=== PATIENT | female | born 1960 | race Caucasian/White ===

== ENCOUNTER 2017-11-26 13:11 | Day surgery (SDC) | payer OTHER ==
[~2017-11-26] VITALS: Ht 160 cm; Wt 53.7 kg
[~2017-11-26 13:11] MED LIST: CEPH500 PO; ESCI20; NITR100CA
[2017-11-26] MEDS ORDERED: MORP30ER PO (13:28)
[2017-11-26] MEDS ORDERED: PROM25S (13:28)
[2017-11-26] MEDS ORDERED: METCAR500 (13:29)
[2017-11-26] MEDS ORDERED: DULO60 PO (13:29)
[2017-11-26] MEDS ORDERED: Oxycodone HCl20 M1 (13:29)
[2017-11-26] MEDS ORDERED: Arava10 MG (13:29)
[2017-11-26] MEDS ORDERED: FISH OIL + D31 EACH (13:30)
[2017-11-26] MEDS ORDERED: L-Lysine500 M1 (13:30)
[2017-11-26] MEDS ORDERED: Narcan 0.40.4 MG/ML (13:30)
[2017-11-26] MEDS ORDERED: [UNRECOGNIZED DRUG - OTHER] (13:30)
[2017-11-26] MEDS ORDERED: FOLI1 (13:30)
[2017-11-26] MEDS ORDERED: CRANBERRY250 MG (13:30)
[2017-11-26] MEDS ORDERED: Hair, Skin & N1 EACH (13:31)
[2017-11-26] MEDS ORDERED: Voltaren100 GM (13:31)
[2017-11-26] MEDS ORDERED: MILK THISTLE140 MG (13:31)
== END 2017-11-26 17:35 | disposition home or self-care (01) ==
LOC: ORSCSDS 13:11
PROVIDERS: Orthopaedic Surgery
PROC: 0RQS0ZZ Repair Right Carpometacarpal Joint, Open Approach (ICD-10-PCS; principal; 2017-11-26 14:30)
DX: M18.11 Unilateral primary osteoarthritis of first carpometacarpal joint, right hand (principal); Z79.899 Other long term (current) drug therapy; Z87.891 Personal history of nicotine dependence
CPT/HCPCS: J0690; J2250; J2270; J3010; J7120

== ENCOUNTER 2018-06-07 04:17 | Inpatient (IN) | payer OTHER ==
[~2018-06-07] VITALS: Ht 160 cm; Wt 53.5 kg
[~2018-06-07 04:17] MED LIST changes: +Arava10 MG; +CRANBERRY250 MG; +DULO60 PO; +FISH OIL + D31 EACH; +FOLI1; +Hair, Skin & N1 EACH; +L-Lysine500 M1; +METCAR500; +MILK THISTLE140 MG; +MORP30ER PO; +Narcan 0.40.4 MG/ML; +Oxycodone HCl20 M1; +PROM25S; +Voltaren100 GM; +[UNRECOGNIZED DRUG - OTHER]
[2018-06-07 05:06] LABS: BASOPHILS ABSOLUTE AUTO 0.06 K/mm3 (0.00-0.23); BASOPHILS PERCENT AUTO 1 % (0-2); EOSINOPHILS ABSOLUTE AUTO 0.09 K/mm3 (0.00-0.68); EOSINOPHILS PERCENT AUTO 1 % (0-6); Hematocrit 44.8 % (33.0-51.0); Hemoglobin 14.9 g/dL (11.5-16.0); IMMATURE GRAN ABSOLUTE AUTO 0.02 K/mm3 (0.00-0.10); IMMATURE GRAN PERCENT AUTO 0 % (0-1); LYMPHOCYTES ABSOLUTE AUTO 0.97 K/mm3 (0.84-5.20); LYMPHOCYTES PERCENT AUTO 12 % (21-46); MONOCYTES ABSOLUTE AUTO 0.54 K/mm3 (0.16-1.47); MONOCYTES PERCENT AUTO 7 % (4-13); Mean Corpuscular HGB 30.5 pg (26.0-34.0); Mean Corpuscular HGB Conc 33.3 g/dL (31.5-36.5); Mean Corpuscular Volume 92 fL (80-100); NEUTROPHILS ABSOLUTE AUTO 6.44 K/mm3 (1.96-9.15); NEUTROPHILS PERCENT AUTO 79 % (41-73); Platelet Count 351 K/mm3 (150-400); RDW Coefficient Variation 12.7 % (11.7-14.2); Red Blood Cell Count 4.89 M/mm3 (3.80-5.20); White Blood Cell Count 8.12 K/mm3 (4.00-11.30)
[2018-06-07 05:20] LABS: Alanine Aminotransfer (ALT/SGP 34 U/L (12-78); Albumin, Blood 3.8 g/dL (3.4-5.0); Albumin/Globulin Ratio 1.1 (0.8-1.8); Alk Phos 102 U/L (50-136); Anion Gap 8 mmol/L (6-16); Aspartate Aminotrans (AST/SGOT 46 U/L (12-37); Bilirubin, Total 0.5 mg/dL (0.1-1.0); Blood Urea Nitrogen 5 mg/dL (8-24); CO2, Blood 30 mmol/L (21-32); Calcium, Blood 9.6 mg/dL (8.5-10.1); Chloride, Blood 103 mmol/L (98-108); Creatinine, Blood 0.72 mg/dL (0.40-1.00); Globulin, Blood 3.6 g/dL (2.2-4.0); Glomerular Filtration Rate >60 (60-); Glucose, Blood 112 mg/dL (70-99); Potassium, Blood 3.8 mmol/L (3.5-5.5); Sodium, Blood 141 mmol/L (136-145); Total Protein, Blood 7.4 g/dL (6.4-8.2)
[2018-06-07] MEDS ORDERED: HYDR1TAB94 PO (05:54)
[2018-06-07] MEDS ORDERED: METCAR500 (10:15)
[2018-06-07] MEDS ORDERED: LEFL20 PO (10:16)
[2018-06-07] MEDS ORDERED: PROM25 PO (10:17)
[2018-06-08 03:54] LABS: Hematocrit 38.2 % (33.0-51.0); Hemoglobin 12.6 g/dL (11.5-16.0); Mean Corpuscular HGB 30.3 pg (26.0-34.0); Mean Corpuscular Volume 92 fL (80-100); Mean Platelet Volume 8.7 fL (9.1-12.4); Platelet Count 318 K/mm3 (150-400); RDW Standard Deviation 43.7 fL (35.1-46.3); Red Blood Cell Count 4.16 M/mm3 (3.80-5.20); White Blood Cell Count 9.54 K/mm3 (4.00-11.30)
[2018-06-08 04:23] LABS: Magnesium, Blood 1.7 mg/dL (1.6-2.4)
[2018-06-08 04:26] LABS: Anion Gap 7 mmol/L (6-16); Blood Urea Nitrogen 4 mg/dL (8-24); Bun/Creatinine Ratio 5.5 (12.0-20.0); CO2, Blood 28 mmol/L (21-32); Chloride, Blood 110 mmol/L (98-108); Creatinine, Blood 0.73 mg/dL (0.40-1.00); Glomerular Filtration Rate >60 (60-); Glucose, Blood 94 mg/dL (70-99); Potassium, Blood 3.5 mmol/L (3.5-5.5); Sodium, Blood 145 mmol/L (136-145)
[2018-06-09 05:44] LABS: Anion Gap 8 mmol/L (6-16); Blood Urea Nitrogen 12 mg/dL (8-24); Bun/Creatinine Ratio 22.2 (12.0-20.0); CO2, Blood 29 mmol/L (21-32); Calcium, Blood 8.7 mg/dL (8.5-10.1); Chloride, Blood 105 mmol/L (98-108); Creatinine, Blood 0.54 mg/dL (0.40-1.00); Glomerular Filtration Rate >60 (60-); Glucose, Blood 127 mg/dL (70-99); Potassium, Blood 3.5 mmol/L (3.5-5.5); Sodium, Blood 142 mmol/L (136-145)
[2018-06-10 04:13] LABS: Hematocrit 42.4 % (33.0-51.0); Hemoglobin 14.1 g/dL (11.5-16.0); Mean Corpuscular HGB 30.4 pg (26.0-34.0); Mean Corpuscular HGB Conc 33.3 g/dL (31.5-36.5); Mean Corpuscular Volume 91 fL (80-100); Mean Platelet Volume 8.9 fL (9.1-12.4); Platelet Count 347 K/mm3 (150-400); RDW Coefficient Variation 12.8 % (11.7-14.2); RDW Standard Deviation 42.4 fL (35.1-46.3); Red Blood Cell Count 4.64 M/mm3 (3.80-5.20); White Blood Cell Count 8.59 K/mm3 (4.00-11.30)
[2018-06-10 04:28] LABS: Anion Gap 8 mmol/L (6-16); Blood Urea Nitrogen 15 mg/dL (8-24); CO2, Blood 29 mmol/L (21-32); Calcium, Blood 8.8 mg/dL (8.5-10.1); Chloride, Blood 105 mmol/L (98-108); Glomerular Filtration Rate >60 (60-); Glucose, Blood 94 mg/dL (70-99); Potassium, Blood 3.6 mmol/L (3.5-5.5); Sodium, Blood 142 mmol/L (136-145)
== END 2018-06-12 11:53 | disposition home or self-care (01) | DRG 389 ==
LOC: ER 04:17 → SURS 07:27
PROVIDERS: Emergency Medicine; Internal Medicine
PROC: 3E0336Z Introduction of Nutritional Substance into Peripheral Vein, Percutaneous Approach (ICD-10-PCS; principal; 2018-06-11)
DX: K56.600 Partial intestinal obstruction, unspecified as to cause (principal); F11.20 Opioid dependence, uncomplicated; G89.29 Other chronic pain; M79.7 Fibromyalgia; F32.9 Major depressive disorder, single episode, unspecified; F41.9 Anxiety disorder, unspecified; K58.9 Irritable bowel syndrome, unspecified; M06.9 Rheumatoid arthritis, unspecified; M85.80 Other specified disorders of bone density and structure, unspecified site; Z66 Do not resuscitate; Z90.5 Acquired absence of kidney
CPT/HCPCS: 36415; 74018; 74177; 80048; 80053; 83690; 83735; 85025; 85027; 96361; 96374; 96375; 96376; 99285-25; C9113; J1170; J2270; J2405; J2550; J3010; J7030; J7120; Q9967

== ENCOUNTER 2019-02-17 08:11 | Day surgery (SDC) | payer OTHER ==
[~2019-02-17] VITALS: Ht 160 cm; Wt 54.9 kg
[~2019-02-17 08:11] MED LIST changes: +HYDR1TAB94 PO; +LEFL20 PO; +PROM25 PO
[2019-02-17] MEDS ORDERED: NARCAN4 MG (08:25)
[2019-02-17] MEDS ORDERED: ADAL40PEN (08:25)
[2019-02-17] MEDS ORDERED: TIZANIDINE HCL2 MG (08:26)
[2019-02-17] MEDS ORDERED: FISH OIL + D31 EACH (08:26)
[2019-02-17] MEDS ORDERED: FOLI400 (08:26)
[2019-02-17] MEDS ORDERED: L-LYSINE500 MG (08:27)
--- NOTE | 2019-02-17 12:49 | NUR ---
02/17/19 1249 Nikkie Yee RECIEVED REPORT FROM TRACEY TAVERA. PT RESTING IN RECLINER WITH EYES CLOSED. OPERATIVE LIMB ELEVATED WITH ICE PACK UNDER LEFT ELBOW. PT RATES PAIN 8/10 IN LEFT HAND. PT MEDICATED WITH PO MEDS. PT AROUSABLE TO VOICE. FLACC SCALE 3. VSS. PT TOLERATING PO FLUIDS. RN CONT TO MONITER DRESSING. NO DRAINAGE AT THIS TIME.
== END 2019-02-17 13:45 | disposition home or self-care (01) ==
LOC: ORSCSDS 08:11
PROVIDERS: Orthopaedic Surgery
PROC: 0LX80ZZ Transfer Left Hand Tendon, Open Approach (ICD-10-PCS; principal; 2019-02-17 08:45)
PROC: 0LU607Z Supplement Left Lower Arm and Wrist Tendon with Autologous Tissue Substitute, Open Approach (ICD-10-PCS; principal; 2019-02-17 08:45)
DX: M18.12 Unilateral primary osteoarthritis of first carpometacarpal joint, left hand (principal); Z87.891 Personal history of nicotine dependence; Z79.899 Other long term (current) drug therapy
CPT/HCPCS: A9270-GY; J0690; J1100; J1885; J2250; J2405; J3010

== ENCOUNTER 2019-04-21 08:57 | Day surgery (SDC) | payer OTHER, SELFPAY ==
[~2019-04-21] VITALS: Ht 160 cm; Wt 55.5 kg
[~2019-04-21 08:57] MED LIST changes: +ADAL40PEN; +CHOL10002 PO; +Cranberry400 MG PO; +Estrace Vagin42.5 GM VAG; +FOLI400; +FOLI400 PO; +Fish Oil 10001000 MG PO; +Hair, Skin & N1 EACH PO; +L-LYSINE500 MG; +L-LYSINE500 MG PO; +Milk Thistle500 MG PO; +NARCAN4 MG; +Oxycodone HCl20 M1 PO; +TIZANIDINE HCL2 MG; +TIZANIDINE HCL2 MG PO; +VOLTAREN100 GM TOP
--- NOTE | 2019-04-21 10:53 | NUR ---
04/21/19 1053 Nan Patricio TOE RING THAT WAS STATED TO BE UNREMOVABLE WAS IN FACT A C-SHAPE AND OPEN ON THE BACK SIDE, REMOVED WITHOUT INCIDENT FOR THE PREP, LABELED AND PLACED IN A SMALL BAGGIE.
== END 2019-04-21 13:20 | disposition home or self-care (01) ==
LOC: ORSCSDS 08:57
PROVIDERS: Orthopaedic Surgery
PROC: 0S9D3ZZ Drainage of Left Knee Joint, Percutaneous Approach (ICD-10-PCS; principal; 2019-04-21 10:20)
PROC: 0SQD4ZZ Repair Left Knee Joint, Percutaneous Endoscopic Approach (ICD-10-PCS; principal; 2019-04-21 10:20)
PROC: 0SBD4ZZ Excision of Left Knee Joint, Percutaneous Endoscopic Approach (ICD-10-PCS; principal; 2019-04-21 10:20)
DX: M17.12 Unilateral primary osteoarthritis, left knee (principal); S83.242A Other tear of medial meniscus, current injury, left knee, initial encounter; S83.282A Other tear of lateral meniscus, current injury, left knee, initial encounter; M22.42 Chondromalacia patellae, left knee; M71.22 Synovial cyst of popliteal space [Baker], left knee; Z87.891 Personal history of nicotine dependence; M79.7 Fibromyalgia; J84.10 Pulmonary fibrosis, unspecified; Z79.899 Other long term (current) drug therapy
CPT/HCPCS: J0171; J0690; J1100; J2250; J2405; J2704; J3010

== ENCOUNTER → 2019-08-08 | Outpatient (CLI) | payer OTHER ==
[2019-08-08 13:50] LABS: U Amphetamine Screen Not Detected; U Barbituate Screen Not Detected; U Benzodiazapine Screen Not Detected; U Buprenorphine Screen Not Detected; U Cannabinoids Screen DETECTED; U Cocaine Screen Not Detected; U Methadone Screen Not Detected; U Methamphetamine Screen Not Detected; U Opiates Screen DETECTED; U Oxycodone Screen DETECTED; U Phencyclidine Screen Not Detected; U Propoxyphene Screen Not Detected
== END ==
LOC: LAB SHORT 12:06 → LAB 12:06
PROVIDERS: Internal Medicine
DX: Z51.81 Encounter for therapeutic drug level monitoring (principal); Z79.891 Long term (current) use of opiate analgesic
CPT/HCPCS: G0480

== ENCOUNTER 2019-12-09 06:04 | Day surgery (SDC) | payer OTHER ==
[~2019-12-09] VITALS: Ht 160 cm; Wt 57.8 kg
[~2019-12-09 06:04] MED LIST changes: +ADAL40PEN SC
--- NOTE | 2019-12-09 06:48 | NUR ---
History, Chart, Medications and Allergies reviewed before start of procedure. Patient confirms NPO status and agrees with scheduled surgery. Lungs clear T/O to Auscultation. Patient reports completing Chlorhexadine shower X2 prior to admission to hospital. Patient States Post-Procedure ride home has been arranged. Pre-Op teaching done. Pt verbalizes understanding. PIERCINGS IN NOSE AND EAR TAPED AND REFUSAL SIGNED AND ON CHART. PARTIAL (LOWER) IN PLACE WILL REMOVE AND PLACE IN PACU WELL GLASSES. NO HEARING DEVICES, CONTACTS PRESENT AT ADMIT.
--- NOTE | 2019-12-09 07:08 | NUR ---
COUNTERPERSON REPORT COMPLETED AT BEDSIDE.
--- NOTE | 2019-12-09 08:09 | NUR ---
12/09/19 0809 Allegra RoweOAM 8CM X 6.25XM, LOT [id number] EXP 05/16/22. NO RECONSTITUTION USED.
--- NOTE | 2019-12-09 11:28 | NUR ---
"DAY SURGERY RN | DISCHARGE VSS. A/O. DENIES NAUSEA. PAIN DECREASING. DR. PEREZ SPOKE WITH PATIENT. DISCHARGE INSTRUCTIONS GIVEN TO PATIENT. FRIEND AT BEDSIDE. TAKEN IN WHEELCHAIR TO FRONT ENTRANCE BY VOLUNTEER."
== END 2019-12-09 22:44 | disposition home or self-care (01) ==
LOC: ORSCMMR 06:04 → ORD 07:30 → ORSCMMR 07:30
PROVIDERS: Surgery
PROC: 0JB60ZZ Excision of Chest Subcutaneous Tissue and Fascia, Open Approach (ICD-10-PCS; principal; 2019-12-09 07:30)
DX: D17.1 Benign lipomatous neoplasm of skin and subcutaneous tissue of trunk (principal); Z79.899 Other long term (current) drug therapy; M79.7 Fibromyalgia; M35.00 Sjogren syndrome, unspecified
CPT/HCPCS: 88304; J0690; J1100; J2250; J2405; J2704; J3010; J7120

== ENCOUNTER 2019-12-20 09:56 | Emergency (ER) | payer OTHER ==
[~2019-12-20] VITALS: Ht 160 cm; Wt 55.8 kg
== END 2019-12-20 12:02 | disposition home or self-care (01) ==
LOC: ER 09:56
DX: L76.33 Postprocedural seroma of skin and subcutaneous tissue following a dermatologic procedure (principal); Z88.6 Allergy status to analgesic agent; Z88.1 Allergy status to other antibiotic agents; Z88.5 Allergy status to narcotic agent; Z88.2 Allergy status to sulfonamides; Z79.899 Other long term (current) drug therapy; Z87.891 Personal history of nicotine dependence; Z98.890 Other specified postprocedural states
CPT/HCPCS: 99283

== ENCOUNTER 2020-12-17 09:53 | Day surgery (SDC) | payer OTHER, SELFPAY ==
[~2020-12-17 09:53] MED LIST changes: +HAIR, SKIN AND1 EAC3 PO
== END 2020-12-17 22:44 | disposition home or self-care (01) ==
LOC: MOI US 09:53 → MOI MAM 10:15 → MOI US 22:44
DX: C50.512 Malignant neoplasm of lower-outer quadrant of left female breast (principal); Z17.0 Estrogen receptor positive status [ER+]
CPT/HCPCS: 19083; 77065; 88305; 88342; 88360; A4648; G0279

== ENCOUNTER → 2021-11-14 | Outpatient (CLI) | payer OTHER | END | disposition home or self-care (01) | LOC: LAB 14:00 → LAB SHORT 14:00 | DX: R30.0 Dysuria (principal) | CPT/HCPCS: 87077; 87086; 87186 ==

== ENCOUNTER → 2021-11-23 | Outpatient (CLI) | payer OTHER | END | disposition home or self-care (01) | LOC: LAB SHORT 18:47 | DX: R30.0 Dysuria (principal) | CPT/HCPCS: 87077; 87086; 87186 ==

== ENCOUNTER 2022-04-20 07:52 | Day surgery (SDC) | payer OTHER ==
[~2022-04-20] VITALS: Ht 160 cm; Wt 55.5 kg
== END 2022-04-20 10:41 | disposition home or self-care (01) ==
LOC: ORSCSDS 07:52
PROVIDERS: Student in an Organized Health Care Education/Training Program
PROC: 0DB78ZX Excision of Stomach, Pylorus, Via Natural or Artificial Opening Endoscopic, Diagnostic (ICD-10-PCS; principal; 2022-04-20 09:00)
PROC: 0DB48ZX Excision of Esophagogastric Junction, Via Natural or Artificial Opening Endoscopic, Diagnostic (ICD-10-PCS; principal; 2022-04-20 09:00)
PROC: 0DBL8ZX Excision of Transverse Colon, Via Natural or Artificial Opening Endoscopic, Diagnostic (ICD-10-PCS; principal; 2022-04-20 09:00)
PROC: 0D758ZZ Dilation of Esophagus, Via Natural or Artificial Opening Endoscopic (ICD-10-PCS; principal; 2022-04-20 09:00)
PROC: 0DBE8ZX Excision of Large Intestine, Via Natural or Artificial Opening Endoscopic, Diagnostic (ICD-10-PCS; principal; 2022-04-20 09:00)
PROC: 0DBN8ZX Excision of Sigmoid Colon, Via Natural or Artificial Opening Endoscopic, Diagnostic (ICD-10-PCS; principal; 2022-04-20 09:00)
DX: K21.00 Gastro-esophageal reflux disease with esophagitis, without bleeding (principal); B37.81 Candidal esophagitis; Z12.11 Encounter for screening for malignant neoplasm of colon; Z86.010 Personal history of colon polyps; D12.3 Benign neoplasm of transverse colon; D12.5 Benign neoplasm of sigmoid colon; K63.89 Other specified diseases of intestine; K44.9 Diaphragmatic hernia without obstruction or gangrene; K22.2 Esophageal obstruction; K29.70 Gastritis, unspecified, without bleeding; K64.8 Other hemorrhoids; Z87.891 Personal history of nicotine dependence; Z85.3 Personal history of malignant neoplasm of breast; Z79.899 Other long term (current) drug therapy
CPT/HCPCS: 88305; 88312; C1726; J2250; J2704; J7120

== ENCOUNTER 2022-05-10 22:18 | Emergency (ER) | payer OTHER ==
[~2022-05-10] VITALS: Ht 160 cm; Wt 54.4 kg
== END 2022-05-11 03:41 | disposition home or self-care (01) ==
LOC: ER 22:18
DX: S01.511A Laceration without foreign body of lip, initial encounter (principal); S05.41XA Penetrating wound of orbit with or without foreign body, right eye, initial encounter; W01.0XXA Fall on same level from slipping, tripping and stumbling without subsequent striking against object, initial encounter; Z88.8 Allergy status to other drugs, medicaments and biological substances; Z88.5 Allergy status to narcotic agent; Z79.899 Other long term (current) drug therapy; Z87.891 Personal history of nicotine dependence
CPT/HCPCS: 12011; 70450; 70486; 90471; 90714; 99283-25; A9270

== ENCOUNTER → 2022-12-29 | Outpatient (CLI) | payer OTHER | LOC: LAB SHORT 14:01 → PLD 14:01 | DX: K14.8 Other diseases of tongue (principal); K13.0 Diseases of lips | CPT/HCPCS: 88305; 88312 ==

== ENCOUNTER → 2023-10-12 | Outpatient (CLI) | payer OTHER | LOC: LAB SHORT 15:51 → LAB 15:51 | DX: N39.0 Urinary tract infection, site not specified (principal) | CPT/HCPCS: 87086 ==

== ENCOUNTER → 2024-03-25 | Outpatient (CLI) | payer OTHER | END | disposition home or self-care (01) | LOC: LAB 12:20 → LAB SHORT 12:20 | DX: R30.0 Dysuria (principal) | CPT/HCPCS: 87086 ==

== ENCOUNTER → 2024-10-27 | Outpatient (CLI) | payer OTHER ==
[2024-10-27 11:55] LABS: BASOPHILS ABSOLUTE AUTO 0.06 K/mm3 (0.00-0.23); BASOPHILS PERCENT AUTO 1 % (0-2); EOSINOPHILS ABSOLUTE AUTO 0.21 K/mm3 (0.00-0.68); EOSINOPHILS PERCENT AUTO 3 % (0-6); Hematocrit 38.2 % (33.0-51.0); Hemoglobin 12.5 g/dL (11.5-16.0); IMMATURE GRAN ABSOLUTE AUTO 0.01 K/mm3 (0.00-0.10); IMMATURE GRAN PERCENT AUTO 0 % (0-1); LYMPHOCYTES ABSOLUTE AUTO 1.64 K/mm3 (0.84-5.20); LYMPHOCYTES PERCENT AUTO 22 % (21-46); MONOCYTES ABSOLUTE AUTO 0.76 K/mm3 (0.16-1.47); MONOCYTES PERCENT AUTO 10 % (4-13); Mean Corpuscular HGB 31.1 pg (26.0-34.0); Mean Corpuscular HGB Conc 32.7 g/dL (31.5-36.5); Mean Corpuscular Volume 95 fL (80-100); Mean Platelet Volume 8.6 fL (9.1-12.4); NEUTROPHILS PERCENT AUTO 64 % (41-73); Platelet Count 314 K/mm3 (150-400); RDW Coefficient Variation 12.9 % (11.7-14.2); RDW Standard Deviation 44.9 fL (35.1-46.3); Red Blood Cell Count 4.02 M/mm3 (3.80-5.20); White Blood Cell Count 7.48 K/mm3 (4.00-11.30)
[2024-10-27 15:30] LABS: Alanine Aminotransfer (ALT/SGP 26 U/L (12-78); Albumin, Blood 3.3 g/dL (3.4-5.0); Albumin/Globulin Ratio 0.9 (0.8-1.8); Alk Phos 102 U/L (50-136); Anion Gap 8 mmol/L (3-11); Aspartate Aminotrans (AST/SGOT 33 U/L (12-37); Bilirubin, Direct <0.1 mg/dL (0.0-0.3); Bilirubin, Indirect Unable to Calculate mg/dL (0.1-0.7); Bilirubin, Total 0.2 mg/dL (0.1-1.0); Blood Urea Nitrogen 6 mg/dL (8-24); Bun/Creatinine Ratio 8.6 (12.0-20.0); CO2, Blood 29 mmol/L (21-32); Chloride, Blood 106 mmol/L (98-108); Globulin, Blood 3.8 g/dL (2.2-4.0); Glomerular Filtration Rate 95 (60-); Glucose, Blood 78 mg/dL (70-99); Potassium, Blood 3.4 mmol/L (3.5-5.5); Sodium, Blood 140 mmol/L (136-145); Total Protein, Blood 7.1 g/dL (6.4-8.2)
== END | disposition home or self-care (01) ==
LOC: LAB 11:02 → LAB SHORT 11:02
PROVIDERS: Internal Medicine Critical Care Medicine
DX: M05.10 Rheumatoid lung disease with rheumatoid arthritis of unspecified site (principal)
CPT/HCPCS: 36415; 80048; 80076; 85025; 87070; 87205

== ENCOUNTER 2024-12-12 09:14 | Inpatient (IN) | payer OTHER ==
[~2024-12-12] VITALS: Ht 157.5 cm; Wt 80.6 kg
[~2024-12-12 09:14] MED LIST changes: -ADAL40PEN SC; +HUMIRA(CF)40 MG/0.1 SC
[2024-12-12 10:10] LABS: BASOPHILS ABSOLUTE AUTO 0.06 K/mm3 (0.00-0.23); BASOPHILS PERCENT AUTO 0 % (0-2); Hematocrit 30.6 % (33.0-51.0); Hemoglobin 10.9 g/dL (11.5-16.0); LYMPHOCYTES ABSOLUTE AUTO 0.54 K/mm3 (0.84-5.20); LYMPHOCYTES PERCENT AUTO 3 % (21-46); MONOCYTES ABSOLUTE AUTO 1.92 K/mm3 (0.16-1.47); MONOCYTES PERCENT AUTO 10 % (4-13); Mean Corpuscular HGB 31.7 pg (26.0-34.0); Mean Corpuscular HGB Conc 35.6 g/dL (31.5-36.5); Mean Corpuscular Volume 89 fL (80-100); Platelet Count 244 K/mm3 (150-400); RDW Coefficient Variation 13.2 % (11.7-14.2); RDW Standard Deviation 42.5 fL (35.1-46.3); Red Blood Cell Count 3.44 M/mm3 (3.80-5.20); White Blood Cell Count 19.18 K/mm3 (4.00-11.30)
[2024-12-12 10:23] LABS: EOSINOPHILS ABSOLUTE AUTO 0.01 K/mm3 (0.00-0.68); EOSINOPHILS PERCENT AUTO 0 % (0-6); IMMATURE GRAN ABSOLUTE AUTO 0.47 K/mm3 (0.00-0.10); IMMATURE GRAN PERCENT AUTO 3 % (0-1); NEUTROPHILS ABSOLUTE AUTO 16.18 K/mm3 (1.96-9.15); NEUTROPHILS PERCENT AUTO 84 % (41-73)
[2024-12-12 10:31] LABS: Albumin/Globulin Ratio 0.5 (0.8-1.8); Bilirubin, Total 0.8 mg/dL (0.1-1.0); Bun/Creatinine Ratio 16.4 (12.0-20.0); Calcium, Blood 7.7 mg/dL (8.5-10.1); Creatinine, Blood 1.22 mg/dL (0.40-1.00); Globulin, Blood 4.4 g/dL (2.2-4.0); Potassium, Blood 2.7 mmol/L (3.5-5.5); Total Protein, Blood 6.4 g/dL (6.4-8.2)
[2024-12-12 10:33] LABS: BAND PERCENT MAN 9 % (0-8); BASOPHILS PERCENT MAN 0 % (0-2); EOSINOPHILS PERCENT MAN 0 % (0-6); LYMPHOCYTES ABSOLUTE MAN 0.57 K/mm3 (0.84-5.20); LYMPHOCYTES PERCENT MAN 3 % (21-46); MONOCYTES ABSOLUTE MAN 1.53 K/mm3 (0.16-1.47); MONOCYTES PERCENT MAN 8 % (4-13); NEUTROPHILS ABSOLUTE MAN 17.07 K/mm3 (1.96-9.15); SEG NEUTROPHILS PERCENT MAN 80 % (41-73); TOTAL CELLS COUNTED 100
[2024-12-12] MEDS ORDERED: NS 1,000 ML IV SCH ×4 (10:45→17:45)
[2024-12-12] MEDS ORDERED: CefTRIAXone Sodium 1,000 MG in NS 100 ML IV ONE (10:45)
[2024-12-12] MEDS ORDERED: Potassium Chloride 20 MEQ TabCR PO ONE ×3 (10:45→17:40)
[2024-12-12 10:51] LABS: Source, Urine Clean Catch
[2024-12-12 11:14] LABS: Appearance, Urine Cloudy (Clear); Bilirubin, Urine Neg (Neg); Blood, Urine 5+ (Neg); Color, Urine Yellow (P-Yellow); Glucose Qualitative, Urine Neg (Neg); Ketones, Urine Neg (Neg); Leukocyte Esterase, Urine 3+ (Neg); Nitrite, Urine Neg (Neg); Protein, Urine 2+ (Neg); Urobilinogen, Urine 2+ (Normal)
[2024-12-12 11:21] LABS: Amorphous Light (0-Heavy); Bacteria Mod /hpf; Squamous Epithelial Cells Few /hpf (Few)
[2024-12-12] MEDS ORDERED: FLU VACC TS2024-25(6MOS UP)/PF 45 MCG/0.5 ML SYRINGE IM SCH (12:45)
[2024-12-12] MEDS ORDERED: Magnesium Hydroxide Conc 10 ML UDC PO PRN (12:45)
[2024-12-12 16:20] VITALS: BP 97/68
[2024-12-12] MEDS ORDERED: METF500 PO (16:38)
[2024-12-12] MEDS ORDERED: Mag Sulfate 1 GM/D5% 100ML 100 ML IV STA (17:05)
[2024-12-12] MEDS ORDERED: Ondansetron HCl 2 MG / ML 2ML Vial IV PRN (18:10)
--- NOTE | 2024-12-12 18:48 | NUR ---
RECEIVED PARTIAL REPORT FROM PHARMACY STUDENT AT 1400, DURING WHICH TIME, PT FELL IN ER ROOM. REPORT FINISHED AT 1530. PT ARRIVES TO UNIT AT 1610 AND IS SLID FROM GURNEY TO HOSPITAL BED. SHE IS ALERT AND ORIENTED X3.PT REPORTS 5/10 PAIN IN HER HEAD. PT IS SLOW WITH SOME RESPONSES, SENTENCES TRAIL OFF AT TIMES. PT ALSO IS IMPULSIVE WHEN EXITING BED, BED ALARM ON FOR SAFETY. PT HAS HEMATOMA ON RIGHT CROWN FROM FALL IN ER. PT REPORTS PREVIOUS HX OF BREAST CANCER AND LYMPHECTOMY ON LEFT SIDE. SHE IS ON RA AND SATTING ABOVE 90% CONTINENT OF URINE AND STOOL. BPS SOFT IN 90'S, KNEES HAVE SLIGHT MODDLING. PT REPORTS EXISTING ANAL PROLAPSE.
[2024-12-12] MEDS ORDERED: Acetaminophen 325 MG TABLET PO PRN (19:00)
[2024-12-12 20:00] VITALS: BP 95/59
[2024-12-12] MEDS ORDERED: Lactobacil 2-S.Thermo-Bifido 1 1 Cap PO SCH (21:00)
--- NOTE | 2024-12-12 21:19 | NUR ---
PT IS ALERT AND ORIENTED X3, CONFUSED ABOUT THE DATE BUT GOT THE YEAR CORRECT. PT FOLLOWS COMMANDS AND USES CALL LIGHT APPROPRIATELY. PT HEART RATE IN THE 90-100s, BLOOD PRESSURE STABLE AT 95/59 MAP OF 70, PT DENIES CHEST PRESSURE. PT IS ON ROOM AIR, SATTING >92% AND PT DENIES SHORTNESS OF BREATH. PT DOES HAVE URGENCY WHEN SHE HAS TO GET UP TO PEE, PT WAS ALSO COMPLAINING OF LLE PAIN IN THE CALF WITH SOME TINGLING/NUMBNESS, NO REDNESS OR EDEMA WAS NOTED. DR. CHAMBERLAIN WAS NOTIFIED, PROVIDER ASSESSED PT AT BEDSIDE, NO NEW ORDERS PLACED. NO OTHER INTERVENTIONS AT THIS TIME. PLAN OF CARE CONTINUED.
[2024-12-12 21:23] LABS: Bun/Creatinine Ratio 19.2 (12.0-20.0); Calcium, Blood 7.2 mg/dL (8.5-10.1); Creatinine, Blood 0.99 mg/dL (0.40-1.00); Potassium, Blood 3.5 mmol/L (3.5-5.5)
[2024-12-12] MEDS ORDERED: Potassium Chloride 10 Meq Tablet SA PO ONE (22:05)
[2024-12-12] MEDS ORDERED: Magnesium Sulf 2 GM/Water 50ML 50 ML IV ONE (22:15)
[2024-12-12] MEDS ORDERED: CALCIUM GLUC IN NACL, ISO-OSM 100 ML IV ONE (22:25)
[2024-12-13] VITALS: BP 114/72
[2024-12-13] MEDS ORDERED: TraMADol HCl 50 MG Tab PO SCH
[2024-12-13 04:00] VITALS: BP 113/76
[2024-12-13 04:17] LABS: BASOPHILS ABSOLUTE AUTO 0.06 K/mm3 (0.00-0.23); BASOPHILS PERCENT AUTO 0 % (0-2); EOSINOPHILS ABSOLUTE AUTO 0.02 K/mm3 (0.00-0.68); EOSINOPHILS PERCENT AUTO 0 % (0-6); Hematocrit 30.7 % (33.0-51.0); Hemoglobin 10.6 g/dL (11.5-16.0); IMMATURE GRAN PERCENT AUTO 3 % (0-1); LYMPHOCYTES ABSOLUTE AUTO 0.62 K/mm3 (0.84-5.20); LYMPHOCYTES PERCENT AUTO 4 % (21-46); MONOCYTES ABSOLUTE AUTO 1.52 K/mm3 (0.16-1.47); MONOCYTES PERCENT AUTO 9 % (4-13); Mean Corpuscular HGB 30.9 pg (26.0-34.0); Mean Corpuscular HGB Conc 34.5 g/dL (31.5-36.5); Mean Corpuscular Volume 90 fL (80-100); Mean Platelet Volume 8.9 fL (9.1-12.4); NEUTROPHILS ABSOLUTE AUTO 14.63 K/mm3 (1.96-9.15); NEUTROPHILS PERCENT AUTO 84 % (41-73); Platelet Count 275 K/mm3 (150-400); RDW Coefficient Variation 13.3 % (11.7-14.2); RDW Standard Deviation 43.8 fL (35.1-46.3); Red Blood Cell Count 3.43 M/mm3 (3.80-5.20); White Blood Cell Count 17.45 K/mm3 (4.00-11.30)
[2024-12-13 04:40] LABS: Albumin, Blood 1.8 g/dL (3.4-5.0); Albumin/Globulin Ratio 0.4 (0.8-1.8); Bilirubin, Total 0.6 mg/dL (0.1-1.0); Bun/Creatinine Ratio 20.6 (12.0-20.0); Calcium, Blood 8.1 mg/dL (8.5-10.1); Creatinine, Blood 0.92 mg/dL (0.40-1.00); Globulin, Blood 4.3 g/dL (2.2-4.0); Magnesium, Blood 2.2 mg/dL (1.6-2.4); Potassium, Blood 3.9 mmol/L (3.5-5.5); Total Protein, Blood 6.1 g/dL (6.4-8.2)
--- NOTE | 2024-12-13 06:01 | NUR ---
PT SUMMARY PT IS ASLEEP LAYING IN BED, PT HAD TO GET UP NUMEROUS TIMES THROUGHOUT THE NIGHT TO USE THE BEDSIDE COMMONDE, PT WOULD URINATE AND HAVE DIARRHEA. PT ALSO HAD SOFT BLOOD PRESSURE, FLUIDS WERE GOING AND CALCIUM GLUGONATE ORDERED, NOTIFIED AND AWARE. NOTIFIED ABOUT LLE PAIN IN CALF. NO OTHER INTERVENTIONS AT THIS TIME. PLAN OF CARE CONTINUED.
[2024-12-13 07:35] VITALS: BP 126/81
[2024-12-13] MEDS ORDERED: CefTRIAXone Sodium 1,000 MG in NS 100 ML IV SCH (09:00)
[2024-12-13] MEDS ORDERED: DULoxetine HCL 60 MG Capsule DR PO SCH (09:00)
[2024-12-13] MEDS ORDERED: Cholecalciferol 1000 Unit Tablet (=25MCG) PO SCH (09:00)
[2024-12-13] MEDS ORDERED: Enoxaparin 40 MG/0.4 ML SYR SC SCH (09:00)
[2024-12-13 15:28] VITALS: BP 102/67
--- NOTE | 2024-12-13 16:53 | NUR ---
SHIFT NOTE: PT DROWSY BUT ANSWER QUESTIONS APPROPRIATELY WHEN AWAKE. SHE IS ON RA WITH NO SOB. SHE WAS ON TELE IN NSR. TELE WAS REMOVED WHEN PT STATUS CHANGED TO MED. SHE HAS HAD FREQUENT VOIDS NEEDING 1P ASSISTANCE TO THE COMMODE. SHE IS ON A REG DIET, NEEDING ENCOURAGEMENT TO EAT. SHE REMPORTS GENERALIZED PAIN AND MAILASE. CARE CONTINUES
[2024-12-13 17:58] LABS: U Amphetamine Screen Not Detected; U Barbituate Screen Not Detected; U Benzodiazapine Screen Not Detected; U Buprenorphine Screen Not Detected; U Cannabinoids Screen Not Detected; U Cocaine Screen Not Detected; U Methadone Screen Not Detected; U Methamphetamine Screen Not Detected; U Opiates Screen DETECTED; U Oxycodone Screen DETECTED; U Phencyclidine Screen Not Detected
[2024-12-13 19:48] VITALS: BP 95/67
--- NOTE | 2024-12-14 00:41 | NUR ---
SHIFT SUMMARY NO ACUTE EVENTS. PT IS DRINKING AND EATING WELL. REPORTS STILL FEELING WEAK BUT ON THE MEND.
[2024-12-14 03:25] VITALS: BP 123/74
[2024-12-14 05:25] LABS: BASOPHILS ABSOLUTE AUTO 0.07 K/mm3 (0.00-0.23); BASOPHILS PERCENT AUTO 0 % (0-2); EOSINOPHILS ABSOLUTE AUTO 0.19 K/mm3 (0.00-0.68); EOSINOPHILS PERCENT AUTO 1 % (0-6); Hematocrit 29.4 % (33.0-51.0); Hemoglobin 10.1 g/dL (11.5-16.0); IMMATURE GRAN ABSOLUTE AUTO 0.42 K/mm3 (0.00-0.10); IMMATURE GRAN PERCENT AUTO 3 % (0-1); LYMPHOCYTES ABSOLUTE AUTO 1.41 K/mm3 (0.84-5.20); LYMPHOCYTES PERCENT AUTO 9 % (21-46); MONOCYTES ABSOLUTE AUTO 1.44 K/mm3 (0.16-1.47); MONOCYTES PERCENT AUTO 9 % (4-13); Mean Corpuscular HGB 30.9 pg (26.0-34.0); Mean Corpuscular HGB Conc 34.4 g/dL (31.5-36.5); Mean Corpuscular Volume 90 fL (80-100); Mean Platelet Volume 9.3 fL (9.1-12.4); NEUTROPHILS ABSOLUTE AUTO 12.44 K/mm3 (1.96-9.15); NEUTROPHILS PERCENT AUTO 78 % (41-73); Platelet Count 335 K/mm3 (150-400); RDW Coefficient Variation 13.6 % (11.7-14.2); RDW Standard Deviation 44.9 fL (35.1-46.3); Red Blood Cell Count 3.27 M/mm3 (3.80-5.20); White Blood Cell Count 15.97 K/mm3 (4.00-11.30)
[2024-12-14 06:29] LABS: Albumin, Blood 1.6 g/dL (3.4-5.0); Albumin/Globulin Ratio 0.4 (0.8-1.8); Bilirubin, Total 0.5 mg/dL (0.1-1.0); Bun/Creatinine Ratio 17.9 (12.0-20.0); Calcium, Blood 7.8 mg/dL (8.5-10.1); Creatinine, Blood 0.78 mg/dL (0.40-1.00); Globulin, Blood 3.9 g/dL (2.2-4.0); Total Protein, Blood 5.5 g/dL (6.4-8.2)
[2024-12-14] MEDS ORDERED: Potassium Chloride 20 MEQ TabCR PO ONE (08:00)
[2024-12-14 08:16] VITALS: BP 95/66
[2024-12-14] MEDS ORDERED: Potassium Chloride 20 MEQ/15 ML UDC PO ONE (11:00)
[2024-12-14 16:10] VITALS: BP 93/65
[2024-12-14] MEDS ORDERED: Ibuprofen 600 MG Tab PO PRN (17:05)
--- NOTE | 2024-12-14 19:16 | NUR ---
SHIFT SUMMARY: NO ACUTE CHANGE HAPPENED DURING THIS SHIFT. PT REMAINS A&OX4. MAKES NEEDS KNOWEN TO STAFF. PLAN FOR POSSIBLE DC TOMORROW. NO SIGNIFICANT EVENTS HAPPENED DURING THIS SHIFT. REPORT TO AGRICULTURAL EXTENSION SPECIALIST RN TO ASSUME CARE OF PT.
[2024-12-14 19:47] VITALS: BP 117/78
--- NOTE | 2024-12-14 20:32 | NUR ---
ASSUMPTION OF CARE ASSUMED PT'S CARE AT 1900.BEDSIDE REPORT COMPLETED WITH DAYSNCFT NURSE.PT SITTING UP IN BED ,DINNER TRAY INFRONT OF HER,VISITOR AT BEDSIDE.PLAN OF CARE REVIEWED WITH PT.ICEPACK TO PT'S NECK,STATES THAT THE NECK PAIN IN GETTING BETTER.DENIES FURTHER NEEDS AT THS TIME,WILL CONTINUE TO MONITOR.CALL LIGHT AND PT'S ITEMS WITHIN REACH.
[2024-12-15 04:45] VITALS: BP 128/75
[2024-12-15 04:47] LABS: BASOPHILS ABSOLUTE AUTO 0.08 K/mm3 (0.00-0.23); BASOPHILS PERCENT AUTO 1 % (0-2); EOSINOPHILS ABSOLUTE AUTO 0.34 K/mm3 (0.00-0.68); EOSINOPHILS PERCENT AUTO 2 % (0-6); Hematocrit 32.4 % (33.0-51.0); Hemoglobin 10.9 g/dL (11.5-16.0); IMMATURE GRAN ABSOLUTE AUTO 0.49 K/mm3 (0.00-0.10); IMMATURE GRAN PERCENT AUTO 4 % (0-1); LYMPHOCYTES ABSOLUTE AUTO 1.73 K/mm3 (0.84-5.20); LYMPHOCYTES PERCENT AUTO 12 % (21-46); MONOCYTES ABSOLUTE AUTO 1.03 K/mm3 (0.16-1.47); MONOCYTES PERCENT AUTO 7 % (4-13); Mean Corpuscular HGB 30.8 pg (26.0-34.0); Mean Corpuscular HGB Conc 33.6 g/dL (31.5-36.5); Mean Corpuscular Volume 92 fL (80-100); Mean Platelet Volume 9.3 fL (9.1-12.4); NEUTROPHILS PERCENT AUTO 74 % (41-73); Platelet Count 458 K/mm3 (150-400); RDW Coefficient Variation 14.1 % (11.7-14.2); RDW Standard Deviation 47.8 fL (35.1-46.3); Red Blood Cell Count 3.54 M/mm3 (3.80-5.20); White Blood Cell Count 14.17 K/mm3 (4.00-11.30)
[2024-12-15 05:10] LABS: Albumin, Blood 1.8 g/dL (3.4-5.0); Albumin/Globulin Ratio 0.4 (0.8-1.8); Bilirubin, Total 0.4 mg/dL (0.1-1.0); Bun/Creatinine Ratio 17.7 (12.0-20.0); Calcium, Blood 9.5 mg/dL (8.5-10.1); Creatinine, Blood 0.79 mg/dL (0.40-1.00); Globulin, Blood 4.5 g/dL (2.2-4.0); Magnesium, Blood 1.4 mg/dL (1.6-2.4); Potassium, Blood 4.5 mmol/L (3.5-5.5); Total Protein, Blood 6.3 g/dL (6.4-8.2)
[2024-12-15 05:17] VITALS: BP 191/124
--- NOTE | 2024-12-15 06:51 | NUR ---
SHIFT SUMMARY PT HAS BEEN SLEEPING MOST OF THE NIGHT,PRN PAIN MEDS GIVEN ORDERED.PT REPORTS HEADACHE RELIEF WITH ICE PACK.PT DENIES NEEDS THIS MORNING.CALL LIGHT AND PT'S ITEMS WITHIN REACH.WILL GIVE REPORT TO DAYSHIFT NURSE.
[2024-12-15] MEDS ORDERED: Magnesium Sulf 2 GM/Water 50ML 50 ML IV ONE (07:35)
[2024-12-15 08:40] VITALS: BP 107/80
--- NOTE | 2024-12-15 09:18 | NUR ---
ASSUMPTION OF CARE ASSUMED CARE OF PATIENT AT 0700, BEDSIDE SHIFT REPORT RECEIVED FROM JOSE JUANFT RN. PT RESTING IN BED, ALERT AND ORIENTED X4. PT ANSWERS QUESTIONS APPROPRAITELY, FOLLOWS DIRECTION WHEN PROMPTED AND IS ABLE TO MAKE HER NEEDS KNOWN. PT MOVES EXTREMITIES EQUALLY BILATERALLY, AMBULATES IN THE ROOM INDEPENDENTLY. PT MED NO TELE STATUS. PT DENIES CP/PRESSURE, MAP >65. PT ON RA, OXYGEN SATURATION >90% ON SPOT CHECK. ABDOMEN SOFT, BOWEL TONES ACTIVE THROUGHOUT. PT DENIES N/V, PT AMBULATES IN BEDSIDE TOILET TO VOID. PIV IN PLACE TO RAC AND LFA. BED IN LOWEST POSITION, CALL LIGHT WITHIN REACH, CARE CONTINUES.
[2024-12-15 11:40] VITALS: BP 130/87
[2024-12-15] MEDS ORDERED: CEFP200 PO (13:57)
[2024-12-15] MEDS ORDERED: PROBIOTIC1 EA13 PO (13:57)
--- NOTE | 2024-12-15 14:39 | NUR ---
DISCHARGE PT PROVIDED DISCHARGE INSTRUCTIONS AND EDUCATED ON NEW MEDICATIONS. ALL QUESTIONS ANSWERED. PT TO BE TAKEN OUT VIA WC
== END 2024-12-15 17:35 | disposition home or self-care (01) | DRG 872 ==
LOC: ER 09:14 → ERHOLD 12:40 → PCU 15:53
PROVIDERS: Emergency Medicine; Student in an Organized Health Care Education/Training Program; ADMIT Hospitalist
DX: A41.51 Sepsis due to Escherichia coli [E. coli] (principal); N17.9 Acute kidney failure, unspecified; N39.0 Urinary tract infection, site not specified; E87.1 Hypo-osmolality and hyponatremia; R65.20 Severe sepsis without septic shock; M06.9 Rheumatoid arthritis, unspecified; G43.909 Migraine, unspecified, not intractable, without status migrainosus; R53.1 Weakness; Z96.698 Presence of other orthopedic joint implants; E86.0 Dehydration; E83.42 Hypomagnesemia; Z66 Do not resuscitate; M54.9 Dorsalgia, unspecified; G89.29 Other chronic pain; E87.6 Hypokalemia; Z85.3 Personal history of malignant neoplasm of breast; Z90.49 Acquired absence of other specified parts of digestive tract; Z98.890 Other specified postprocedural states; Z90.5 Acquired absence of kidney; Z88.5 Allergy status to narcotic agent; Z88.2 Allergy status to sulfonamides; Z88.8 Allergy status to other drugs, medicaments and biological substances; Z79.899 Other long term (current) drug therapy; W19.XXXA Unspecified fall, initial encounter; Z87.891 Personal history of nicotine dependence; Z98.51 Tubal ligation status
CPT/HCPCS: 36415; 70450; 71045; 80048; 80053; 81001; 82947; 83605; 83735; 84484; 85025; 87040; 87077; 87086; 87186; 93005; 93010; 94762; 96365; 97161; 99285-25; A9270; J0612; J0696; J1650; J2405; J3475; J7030; P9612

== ENCOUNTER 2024-12-19 09:22 | Emergency (ER) | payer OTHER ==
[~2024-12-19] VITALS: Ht 165.1 cm; Wt 45.4 kg
[~2024-12-19 09:22] MED LIST changes: +CEFP200 PO; +METF500 PO; +PROBIOTIC1 EA13 PO
[2024-12-19] MEDS ORDERED: Magnesium Sulf 2 GM/Water 50ML 50 ML IV ONE (09:50)
[2024-12-19] MEDS ORDERED: Lactated Ringer's 1,000 ML IV ONE (09:50)
[2024-12-19 10:10] LABS: BASOPHILS ABSOLUTE AUTO 0.03 K/mm3 (0.00-0.23); BASOPHILS PERCENT AUTO 0 % (0-2); EOSINOPHILS PERCENT AUTO 1 % (0-6); Hematocrit 34.5 % (33.0-51.0); Hemoglobin 11.5 g/dL (11.5-16.0); IMMATURE GRAN ABSOLUTE AUTO 0.19 K/mm3 (0.00-0.10); IMMATURE GRAN PERCENT AUTO 2 % (0-1); LYMPHOCYTES ABSOLUTE AUTO 1.03 K/mm3 (0.84-5.20); LYMPHOCYTES PERCENT AUTO 10 % (21-46); MONOCYTES ABSOLUTE AUTO 0.72 K/mm3 (0.16-1.47); MONOCYTES PERCENT AUTO 7 % (4-13); Mean Corpuscular HGB 31.3 pg (26.0-34.0); Mean Corpuscular HGB Conc 33.3 g/dL (31.5-36.5); Mean Corpuscular Volume 94 fL (80-100); Mean Platelet Volume 8.4 fL (9.1-12.4); NEUTROPHILS ABSOLUTE AUTO 7.85 K/mm3 (1.96-9.15); NEUTROPHILS PERCENT AUTO 79 % (41-73); Platelet Count 528 K/mm3 (150-400); RDW Coefficient Variation 13.8 % (11.7-14.2); RDW Standard Deviation 47.4 fL (35.1-46.3); Red Blood Cell Count 3.68 M/mm3 (3.80-5.20); White Blood Cell Count 9.92 K/mm3 (4.00-11.30)
[2024-12-19 10:30] VITALS: BP 89/61
[2024-12-19 10:45] LABS: Albumin, Blood 2.4 g/dL (3.4-5.0); Albumin/Globulin Ratio 0.5 (0.8-1.8); Bilirubin, Total 0.2 mg/dL (0.1-1.0); Bun/Creatinine Ratio 13.7 (12.0-20.0); Calcium, Blood 8.6 mg/dL (8.5-10.1); Creatinine, Blood 0.88 mg/dL (0.40-1.00); Globulin, Blood 4.4 g/dL (2.2-4.0); Magnesium, Blood 1.1 mg/dL (1.6-2.4); Total Protein, Blood 6.8 g/dL (6.4-8.2)
[2024-12-19 11:15] LABS: CORONAVIRUS COVID-19 AG Negative (NEGATIVE); INFLUENZA A AG Positive (NEGATIVE); INFLUENZA B AG Negative (NEGATIVE)
[2024-12-19] MEDS ORDERED: OSEL75CA PO (12:24)
[2024-12-19] MEDS ORDERED: Mag-Tab Sr84 MG PO (12:24)
== END 2024-12-19 12:36 | disposition home or self-care (01) ==
LOC: ER 09:22
PROVIDERS: Emergency Medicine
DX: J10.1 Influenza due to other identified influenza virus with other respiratory manifestations (principal); E83.42 Hypomagnesemia; K58.9 Irritable bowel syndrome, unspecified; M06.9 Rheumatoid arthritis, unspecified; Z79.84 Long term (current) use of oral hypoglycemic drugs; Z79.899 Other long term (current) drug therapy
CPT/HCPCS: 36415; 71046; 80053; 83605; 83735; 83880; 85025; 87428-QW; 93005; 93010; 96374; 99284-25; J3475; J7120

== ENCOUNTER 2025-01-01 20:32 | Inpatient (IN) | payer OTHER ==
[~2025-01-01] VITALS: Ht 157.5 cm; Wt 59.7 kg
[~2025-01-01 20:32] MED LIST changes: -CHOL10002 PO; +Mag-Tab Sr84 MG PO; +OSEL75CA PO; +VITAMIN D31000 UNI1 PO
[2025-01-01 20:55] LABS: BASOPHILS ABSOLUTE AUTO 0.11 K/mm3 (0.00-0.23); BASOPHILS PERCENT AUTO 1 % (0-2); EOSINOPHILS ABSOLUTE AUTO 0.29 K/mm3 (0.00-0.68); EOSINOPHILS PERCENT AUTO 1 % (0-6); Hematocrit 29.3 % (33.0-51.0); Hemoglobin 9.5 g/dL (11.5-16.0); IMMATURE GRAN ABSOLUTE AUTO 0.76 K/mm3 (0.00-0.10); IMMATURE GRAN PERCENT AUTO 3 % (0-1); LYMPHOCYTES ABSOLUTE AUTO 1.67 K/mm3 (0.84-5.20); LYMPHOCYTES PERCENT AUTO 7 % (21-46); MONOCYTES ABSOLUTE AUTO 1.79 K/mm3 (0.16-1.47); MONOCYTES PERCENT AUTO 8 % (4-13); Mean Corpuscular HGB 29.9 pg (26.0-34.0); Mean Corpuscular HGB Conc 32.4 g/dL (31.5-36.5); Mean Corpuscular Volume 92 fL (80-100); Mean Platelet Volume 8.8 fL (9.1-12.4); NEUTROPHILS ABSOLUTE AUTO 18.51 K/mm3 (1.96-9.15); NEUTROPHILS PERCENT AUTO 80 % (41-73); Platelet Count 570 K/mm3 (150-400); RDW Coefficient Variation 13.3 % (11.7-14.2); RDW Standard Deviation 45.5 fL (35.1-46.3); Red Blood Cell Count 3.18 M/mm3 (3.80-5.20); White Blood Cell Count 23.13 K/mm3 (4.00-11.30)
[2025-01-01 21:31] LABS: Albumin/Globulin Ratio 0.4 (0.8-1.8); Bilirubin, Total 0.5 mg/dL (0.1-1.0); Bun/Creatinine Ratio 15.3 (12.0-20.0); Calcium, Blood 8.6 mg/dL (8.5-10.1); Creatinine, Blood 0.72 mg/dL (0.40-1.00); Globulin, Blood 4.9 g/dL (2.2-4.0); Potassium, Blood 3.4 mmol/L (3.5-5.5); Total Protein, Blood 6.9 g/dL (6.4-8.2)
[2025-01-01] MEDS ORDERED: Promethazine HCl 25 MG Tab PO ONE (22:10)
[2025-01-01] MEDS ORDERED: CefTRIAXone Sodium 1,000 MG in NS 100 ML IV ONE ×2 (22:10→23:45)
[2025-01-01] MEDS ORDERED: NS 1,000 ML IV SCH (22:30)
[2025-01-01] MEDS ORDERED: Magnesium Sulf 2 GM/Water 50ML 50 ML IV ONE (23:30)
[2025-01-01] MEDS ORDERED: Potassium Chloride 10 Meq Tablet SA PO ONE (23:35)
[2025-01-01] MEDS ORDERED: FLU VACC TS2024-25(6MOS UP)/PF 45 MCG/0.5 ML SYRINGE IM ONE (23:35)
[2025-01-01] MEDS ORDERED: Vancomycin HCL 1,250 MG in NS 250 ML IV ONE (23:45)
[2025-01-02] MEDS ORDERED: Potassium Chloride 20 MEQ TabCR PT ONE (01:00)
[2025-01-02] MEDS ORDERED: MS CONTIN3010 PO (01:10)
[2025-01-02] MEDS ORDERED: PROAIR DIGIHAL90 MCG INH (01:11)
[2025-01-02] MEDS ORDERED: MAGN84 PO (01:11)
[2025-01-02 01:12] LABS: BASOPHILS ABSOLUTE AUTO 0.09 K/mm3 (0.00-0.23); BASOPHILS PERCENT AUTO 0 % (0-2); EOSINOPHILS ABSOLUTE AUTO 0.29 K/mm3 (0.00-0.68); EOSINOPHILS PERCENT AUTO 1 % (0-6); Hematocrit 26.5 % (33.0-51.0); Hemoglobin 8.7 g/dL (11.5-16.0); IMMATURE GRAN ABSOLUTE AUTO 0.72 K/mm3 (0.00-0.10); IMMATURE GRAN PERCENT AUTO 3 % (0-1); LYMPHOCYTES ABSOLUTE AUTO 1.68 K/mm3 (0.84-5.20); LYMPHOCYTES PERCENT AUTO 7 % (21-46); MONOCYTES ABSOLUTE AUTO 1.76 K/mm3 (0.16-1.47); MONOCYTES PERCENT AUTO 8 % (4-13); Mean Corpuscular HGB 30.4 pg (26.0-34.0); Mean Corpuscular HGB Conc 32.8 g/dL (31.5-36.5); Mean Corpuscular Volume 93 fL (80-100); Mean Platelet Volume 8.8 fL (9.1-12.4); NEUTROPHILS ABSOLUTE AUTO 18.31 K/mm3 (1.96-9.15); NEUTROPHILS PERCENT AUTO 80 % (41-73); Platelet Count 499 K/mm3 (150-400); RDW Coefficient Variation 13.5 % (11.7-14.2); RDW Standard Deviation 45.5 fL (35.1-46.3); Red Blood Cell Count 2.86 M/mm3 (3.80-5.20); White Blood Cell Count 22.85 K/mm3 (4.00-11.30)
[2025-01-02 01:34] LABS: Albumin, Blood 1.7 g/dL (3.4-5.0); Albumin/Globulin Ratio 0.4 (0.8-1.8); Bilirubin, Total 0.4 mg/dL (0.1-1.0); Bun/Creatinine Ratio 13.5 (12.0-20.0); Creatinine, Blood 0.67 mg/dL (0.40-1.00); Globulin, Blood 4.5 g/dL (2.2-4.0); Magnesium, Blood 2.2 mg/dL (1.6-2.4); Potassium, Blood 3.8 mmol/L (3.5-5.5); Total Protein, Blood 6.2 g/dL (6.4-8.2)
[2025-01-02 01:48] VITALS: BP 111/64
--- NOTE | 2025-01-02 02:59 | NUR ---
SHIFT SUMMARY/TRANSFER NOTE: @0120 REPORT RECEIVED FROM CHECK CLERKTRACEY MOSER. PT ARRIVED TO MEDICAL FLOOR RM#[id number] @0143. PT BROUGHT ALL HER BELONINGS WITH HER. PT WAS ASSITED BY 1-PERSON TO THE HOSPITAL BED. PT IS A/O X4, REPORTS SOME CONFUSION D/T NOT FEELING WELL. TRACEY Castro COMPLETED THE ADMISSION ASSESSMENT, SKIN CHECK WITH THIS PROBATE CLERK. NON-SLIP SOCKS IN PLACE, ASSITED TO HOSPITAL GOWN. AWAITING FOR TELEMONITOR. O2 @3L VIA NASAL CANNULA. NEW ORDER FOR SPUTUM SAMPLE- NOT COLLECTED OF 304. NO ACUTE EVENTS SINCE ADMISSION. BED AT THE LOWEST POSITION, CALL LIGHT W/I REACH. PT IS ABLE TO MAKE HER NEEDS KNOWN.
[2025-01-02 04:41] VITALS: BP 96/63
[2025-01-02] MEDS ORDERED: Lactated Ringer's 500 ML IV SCH (04:50)
[2025-01-02] MEDS ORDERED: GuaiFENesin 600 MG TabCR PO PRN (04:50)
--- NOTE | 2025-01-02 05:43 | NUR ---
NEW T-ORDER FROM ON-CALL HOSPITALIST : LR 500MLS TOTAL @250MLS/HR X1 DOSE. AND GUAFENESIN 600MG BID PRN. ENTERED TO [employer], SEE EMAR. NO ADDITIONAL NEW ORDERS AT THIS TIME.
--- NOTE | 2025-01-02 05:48 | NUR ---
NEW ORDER FROM ON-CALL HOSPITALIST RECEIVED: A ONE TIME DOSE OF OXYCODONE 10MG PO NOW. NO ADDITIONAL NEW ORDERS AT THIS TIME. ENTERED TO [employer], SEE EMAR.
[2025-01-02] MEDS ORDERED: OxyCODONE HCL 5 MG TAB PO ONE (05:50)
[2025-01-02] MEDS ORDERED: NS 250 ML IV PRN ×2 (05:55→21:40)
[2025-01-02 07:17] VITALS: BP 93/59
[2025-01-02] MEDS ORDERED: Acetaminophen 500 MG Tab PO PRN (07:35)
[2025-01-02] MEDS ORDERED: Polyethylene Glycol 3350 17 gm PO PRN (07:40)
[2025-01-02] MEDS ORDERED: NS 1,000 ML IV ONE (08:05)
[2025-01-02] MEDS ORDERED: Lactobacil 2-S.Thermo-Bifido 1 1 Cap PO SCH (09:00)
[2025-01-02] MEDS ORDERED: Cholecalciferol 1000 Unit Tablet (=25MCG) PO SCH (09:00)
[2025-01-02] MEDS ORDERED: Enoxaparin 40 MG/0.4 ML SYR SC SCH (09:00)
[2025-01-02] MEDS ORDERED: Vancomycin HCL 750 MG in NS 250 ML IV SCH (11:00)
[2025-01-02 11:17] VITALS: BP 99/63
--- NOTE | 2025-01-02 13:49 | NUR ---
Pt. is awake and sitting up in bed when she welcomes my visit. Pt. has quaker friends at bedside. Pt. displays evidence of bein guarded at first. Facilitate a life review and establish a measure of rapport. Consider matters of lola and belief, as well as common relationships in the community. Pt. displayed evidence of greater trust. Prayed withe the Pt. and guests. Pt, verbalized gratitude for the spiritual care visit.
[2025-01-02] MEDS ORDERED: Benzonatate 100 MG Cap PO PRN (15:20)
[2025-01-02] MEDS ORDERED: OxyCODONE HCL 5 MG TAB PO PRN (15:20)
[2025-01-02 15:25] VITALS: BP 92/56
--- NOTE | 2025-01-02 17:20 | NUR ---
SHIFT NOTE: PT A/OX4 ABLE TO MAKE HER NEEDS KNONW. HER HAS BEEN AT BED T/O SHIFT AND HELPFUL WITH CARE. PT REPORTS FEELING VERY TIRED, AND DRIFTING OFF DURING CONVERSATIONS. SHE HAS A VERY CROUPY SOUNDING COUGH THAT IS PRODUCTIVE. SHE IS ON TELE IN NSR WITH NO ACUTE EVENTS. SHE IS ON 4L NC, THIS RN ATTEMPTED TO WEAN TO 3L, PT WAS UNABLE TO MAINTAIN SPO2>90%. PT REMAINS ON 4L NC. SHE IS CONT WITH 1P ASSISTANCE TO THE BSC. SHE HAS NS RUNNING PER EMAR. CARE CONTINUES
[2025-01-02] MEDS ORDERED: Cellcept500 MG PO (19:24)
[2025-01-02] MEDS ORDERED: Phenergan25 M1 PO (19:25)
[2025-01-02] MEDS ORDERED: ANASTROZOLE1 M7 PO (19:26)
[2025-01-02] MEDS ORDERED: OMEP20ER PO (19:27)
[2025-01-02 19:55] VITALS: BP 101/65
[2025-01-02] MEDS ORDERED: Ipratropium/Albuterol SulF 2.5-0.5MG/3 ML Amp INH SCH (20:20)
[2025-01-02] MEDS ORDERED: Albuterol 2.5 MG/3 ML VIAL INH PRN (20:20)
[2025-01-02] MEDS ORDERED: Docusate Sodium/Senna 1 Tab PO SCH (21:00)
[2025-01-02] MEDS ORDERED: Morphine Sulfate 30 MG TabCR PO SCH (21:00)
[2025-01-02] MEDS ORDERED: CefTRIAXone Sodium 2,000 MG in NS 100 ML IV SCH (21:00)
[2025-01-03 00:33] VITALS: BP 135/76
[2025-01-03 03:43] VITALS: BP 136/79
[2025-01-03 06:19] LABS: Hematocrit 28.2 % (33.0-51.0); Hemoglobin 9.2 g/dL (11.5-16.0); Mean Corpuscular HGB Conc 32.6 g/dL (31.5-36.5); Mean Corpuscular Volume 92 fL (80-100); Mean Platelet Volume 8.6 fL (9.1-12.4); Platelet Count 502 K/mm3 (150-400); RDW Coefficient Variation 13.6 % (11.7-14.2); RDW Standard Deviation 46.2 fL (35.1-46.3); Red Blood Cell Count 3.07 M/mm3 (3.80-5.20); White Blood Cell Count 29.05 K/mm3 (4.00-11.30)
--- NOTE | 2025-01-03 06:46 | NUR ---
SHIFT SUMMARY: Pt is admitted for acute hypoxic respiratory failure and is a DNR. is alert and able to make needs known. ADLs have been SBA to 1p depending. Pain was stated at 3/10 with night medications and no reports of increase of pain or discomfort when checked through the shift. Kain reports sinus tach in the 100s. At the start of shift she was on 4LPM via NC. on first vital check SPO2 was 72%. O2 was raised to 7lpm this only had a recovery up to about 82%. At 10 lpm 86% max. 15 lpm was able to get her SPO2 up to about 90-91% until she would talk or try and move or mouth breath. Coughing would also cause her SPO2 to fall into the low 80s with a very slow recovery. Respiratory accessed and had given nebulizer treatments as well. SPO2 would still drop below 88% with almost any change with slow recovery after treatments. Respiratory started airvo at 45 LPM and 73% O2. the only time that SPO2 drops below 88% is when she has a coughing spell or the NC is not in the correct place. SPO2 recovery has been fast after starting airvo. PRN medication for couch suppression has been given.
[2025-01-03 06:48] LABS: Albumin, Blood 1.8 g/dL (3.4-5.0); Anion Gap 13 mmol/L (3-11); Blood Urea Nitrogen 4 mg/dL (8-24); Bun/Creatinine Ratio 7.3 (12.0-20.0); CO2, Blood 21 mmol/L (21-32); Calcium, Blood 8.3 mg/dL (8.5-10.1); Chloride, Blood 107 mmol/L (98-108); Creatinine, Blood 0.55 mg/dL (0.40-1.00); Glomerular Filtration Rate 101 (60-); Glucose, Blood 98 mg/dL (70-99); Magnesium, Blood 1.4 mg/dL (1.6-2.4); Phosphorus, Blood 3.7 mg/dL (2.5-4.9); Potassium, Blood 3.7 mmol/L (3.5-5.5); Sodium, Blood 137 mmol/L (136-145)
[2025-01-03 07:18] VITALS: BP 116/60
[2025-01-03] MEDS ORDERED: Magnesium Sulf 2 GM/Water 50ML 50 ML IV ONE (07:25)
[2025-01-03] MEDS ORDERED: Piperacillin/Tazobactam Sod 4.5 GM in NS 100 ML IV SCH ×2 (08:00→18:00)
[2025-01-03] MEDS ORDERED: DULoxetine HCL 60 MG Capsule DR PO SCH (09:00)
--- NOTE | 2025-01-03 09:30 | NUR ---
PT STARTED SHIFT WITH AIRVO AT 45 WITH75% AND PT WAS DESATING WITH COUGHS OR MOUTH BREATHING. DISCUSSED SITUATION WITH RT AND THEY FELT PCU WOULD BE APPROPRIATED CONSIDERING PT'S CURRENT SITUATION. DR MANNING WAS CALLED AND HE ORDERD PCU TRANSFER. REPORT WAS CALLED TO RECIEVING RN AND ALL PERSONAL BELONINGS WERE COLLECTED AND TRANSFERED WITH PT. PT TRANSFERED VIA BED WITH RT AT BEDSIDE FOR TRANSFER. PT DESATING LOW 70s WHILE GETTING HOOKED BACK UP TO AIRVO. WAS MOVING PERSONAL BELONING TO PCU 11.
[2025-01-03 09:31] VITALS: BP 99/69
[2025-01-03 10:33] LABS: Vancomycin, Trough 11.1 ug/mL (5.0-10.0)
--- NOTE | 2025-01-03 10:39 | NUR ---
TRANSFER NOTE REPORT RECIEVED FROM [facility] FLOOR RN AT 0903. PT ARRIVED TO UNIT AT 0930. PT ON AIRVO 40L 77% AT TIME OF ARRIVAL. PT ENDORSED SOB THAT IS CONSTANT. PT TACHYPNIEC WITH RR 28 BPM. PT SPEAKS IN 2-3 WORDS AT A TIME IN HER SENTENCES. PT ABLE TO TRANSFER FROM BED TO BSC WITH 2 STFF MEMBERS PRESENT, PT HAS DECENT STRENGTH BUT WOB INCREASED. SATS REMAINED STABLE WHILE UP FOR BSC. PT HAS COUGHING SPELLS THAT DROP SATS TO HIGH 70'S, PT SATS REBOUND SLOWLY.
[2025-01-03] MEDS ORDERED: Piperacillin/Tazobactam Sod 4.5 GM in NS 100 ML IV ONE (11:30)
[2025-01-03] MEDS ORDERED: Vancomycin HCL 750 MG in NS 250 ML IV SCH (12:00)
--- NOTE | 2025-01-03 14:08 | NUR ---
UPDATE PT CURRENTLY ON PHONE WITH FAMILY AND APPEARS TO BE ABLE TO SPEAK FULL SENTENCES AT THIS TIME. AIRVO AT 50L 75% AND PT SATS IN THE LOW 90'S. PT ASKING QUESTIONS ABOUT AIRVO AND THE HUMIDIFIER. THIS RN EDUCATED PT ON THE USE OF AIRVO. HER COUGH, THIS RN INFORMED PT THAT HAVING A PRODUCTIVE COUGH WOULD BE BENEFICIAL TO THE PT AND THAT WE DO NOT WANT TO SUPPRESS HER COUGH. PT VERBALIZED UNDERSTANDING.
[2025-01-03 16:02] VITALS: BP 114/78
[2025-01-03] MEDS ORDERED: Morphine Sulfate 10 MG/ML 1MLSYR INH PRN (17:15)
--- NOTE | 2025-01-03 18:08 | NUR ---
SHIFT SUMMARY PT A/OX4 SINCE ARRIVING TO UNIT, ANXIOUS AT TIMES DUE TO O2 DEMANDS. PT INDEPENDENT IN BED AND ABLE TO TRANSFER TO BSC WITH 1 PER ASSIST. PT O2 SATS IN THE LOW 90'S ON AIRVO 50L 80%, DESATS WITH COUGHING FITS. SATS REACH LOW 70'S AT TIMES, SLOW TO REBOUND. PT ENDORSED SOB SINCE ARRIVING TO UNIT. BP'S SOFT BUT STABLE. OTHER VSS STABLE. NO REPOR TOF CHEST PAIN/PRESSURE. PT EXPRESSED ANXIETY ONCE ARRIVING TO UNIT AND MADE COMMENTS ABOUT BEING DONE FIGHTING. THIS RN, PALLIATIVE, AND MD HAD DISCUSSION WITH PT. PT PRESENT FOR DISCUSSION. PT TRIALED BEING OFF AIRVO TO WASH HER FACE WITH A WASHRAG, SATS IMMEDIATELY DROPPED TO 70%, AIVO REAPPLIED, SLOW REBOUND TO THE 90'S. PT ASKED TO TRY A MASK, NON REBREATHER TRIALED, SATS AT 85%.
[2025-01-03 19:18] VITALS: BP 99/59
--- NOTE | 2025-01-03 20:43 | NUR ---
ASSUMED CARE OF THIS PT AT 1900. PT IS A+O X4 ABLE TO MAKE NEEDS KNOWN. PT WAS TRIPPODING DURING BEDSIDE SHIFT REPORT AND IS EXTERMLY ANXIOUS. PT IS ON AIRVO CURRENTLY. SHE HAS A COUGH THAT IS RPODUCTIVE AT TIMES, SHE DESCRIBES THE COUGHING BEING PAINFUL FOR HER, SHE RATES HER PAIN AN 8 ON A SCALE ON 0-10. SCEDUALED PAIN MEDICATION PROVIDED. EXTRA PILLOWS PROVIDED FOR COMFORT, CALL LIGHT IN REACH.
[2025-01-03 21:49] LABS: Adenovirus Not Detected (NOT DETECT); Bordetella pertussis Not Detected (NOT DETECT); Chlamydophila pneumoniae Not Detected (NOT DETECT); Coronavirus 229E Not Detected (NOT DETECT); Coronavirus HKU1 Not Detected (NOT DETECT); Coronavirus NL63 Not Detected (NOT DETECT); Coronavirus OC43 Not Detected (NOT DETECT); Human Metapneumovirus Not Detected (NOT DETECT); Human Rhinovirus/Enterovirus Not Detected (NOT DETECT); Influenza A/2009-H1 Not Detected (NOT DETECT); Influenza A/H1 Not Detected (NOT DETECT); Influenza A/H3 Not Detected (NOT DETECT); Influenza B Not Detected (NOT DETECT); Mycoplasma pneumoniae Not Detected (NOT DETECT); Parainfluenza Virus 1 Not Detected (NOT DETECT); Parainfluenza Virus 2 Not Detected (NOT DETECT); Parainfluenza Virus 3 Not Detected (NOT DETECT); Parainfluenza Virus 4 Not Detected (NOT DETECT); Respiratory Syncytial Virus Not Detected (NOT DETECT); SARS-Cov-2 (COVID-19), BioFire Not Detected (NOT DETECT)
--- NOTE | 2025-01-03 22:27 | NUR ---
nurse note THIS RN CALLED AND SPOKE TO MD ALAS ABOUT A POSSIBLE PULMONOLOGY CONSULT FOR THIS PATIENT, NO NEW ORDERS AT THIS TIME. PATIENT WOB HAS NOT IMPROVED, SHE REMAINS ON AIRVO AT 60 LITERS AND 81% O2. PATIENT IS ANXIOUS SITTING UP IN A TRIPOD POSTION. ABX INFUSING. TELE REMAINS IN PLACE. CALL LIGHT IN REACH.
[2025-01-04] VITALS (7 sets, daily range): BP systolic 96–151; BP diastolic 62–89
[2025-01-04 04:11] LABS: Hemoglobin 8.8 g/dL (11.5-16.0); Mean Corpuscular HGB 30.8 pg (26.0-34.0); Mean Corpuscular HGB Conc 33.8 g/dL (31.5-36.5); Mean Corpuscular Volume 91 fL (80-100); Mean Platelet Volume 8.5 fL (9.1-12.4); Platelet Count 488 K/mm3 (150-400); RDW Coefficient Variation 13.6 % (11.7-14.2); RDW Standard Deviation 45.1 fL (35.1-46.3); Red Blood Cell Count 2.86 M/mm3 (3.80-5.20); White Blood Cell Count 29.03 K/mm3 (4.00-11.30)
[2025-01-04 04:37] LABS: Albumin, Blood 1.7 g/dL (3.4-5.0); Anion Gap 12 mmol/L (3-11); Blood Urea Nitrogen 4 mg/dL (8-24); Bun/Creatinine Ratio 7.3 (12.0-20.0); CO2, Blood 26 mmol/L (21-32); Calcium, Blood 8.1 mg/dL (8.5-10.1); Chloride, Blood 104 mmol/L (98-108); Creatinine, Blood 0.55 mg/dL (0.40-1.00); Glomerular Filtration Rate 101 (60-); Glucose, Blood 105 mg/dL (70-99); Magnesium, Blood 1.7 mg/dL (1.6-2.4); Phosphorus, Blood 3.8 mg/dL (2.5-4.9); Potassium, Blood 3.6 mmol/L (3.5-5.5); Sodium, Blood 138 mmol/L (136-145)
--- NOTE | 2025-01-04 05:29 | NUR ---
SHIFT SUMMARY PT IS A+O X4, ABLE TO MAKE NEEDS KNOWN. SHE HAS BEEN ANXIOUS ON AND OFF DURING THE SHIFT REQUIRING THIS RN TO HELP TALK HER THROUGH HER BREATHING AND HELP CALM HER DOWN. PT HAS SAT UP IN A TRIPOD POSTION MOST OF THE SHIFT. SHE HAS NOT GOT MUCH SLEEP DUE TO HER COUGHING FITS. WOB HAS NOT GOT BETTER, AIRVO SETTINGS REMAIN AT 60L & 82% O2. PT DESATS TO THE LOW 70s W/ ANY AMOUNT OF ACTIVITY OR COUGHING REQUIRING SEVERAL MINUTES TO RETURN BACK TO 90% AND ABOVE. PT SHOWS SINUS TACH ON THE MONITOR. BP STABLE, MAP ABOVE 60. MEDICATED PER EMAR FOR PAIN T/O SHIFT. BED IN LOWEST POSTION FOR SAFETY. CALL LIGHT IN REACH, WILL CONTINUE W/ PLAN ON CARE AND REPORT TO ON COMING RN.
[2025-01-04] MEDS ORDERED: Furosemide 10 MG / ML 2ML Vial IV ONE (08:50)
[2025-01-04] MEDS ORDERED: MethylPREDNISolone Sod Succ 125 MG Vial IV ONE (08:50)
--- NOTE | 2025-01-04 10:55 | NUR ---
am note this rn assumed care at 0700. vital signs stable. tele sinustach 100s. spo2 >90% on airvo 60l and 85%. patient is alert and oriented x4. neuro is intact. patient is able to make needs known and uses call light appropriately. patient is anxious due to feeling short of breath, espeically after a coughing fit. patient having a panic episode after coughing and this rn sat with the patient and patient oxygen dropped into the 70s. patient was able to calm down and recover and maintain levels >90%s. patient lung sounds coarse bilateral uppers and coarse crackles lower lung sounds bilaterally. patient reports pain in low back and rated it at a 9 on the numerical pain scale. patient medicated with pain meds and reported coming down to a 3/4 and then reassessed later and pain back up to rated 8 and medicated with pain meds, upon reassessment pain level at a 6. patient provides a calming atmosphere for the patient and when he leaves the room patient anxiety increases. see shift assessment for further detials. md Varner in the room around 0800 to see patient and patient , amanda. and discussed giving steriods, and diuertics and supplemental oxygen to help with patient respiratory status. md York in the room around 1030 and discussed plan with patient and patient at bedside. patient able to get up to bedside comode to use the bathroom and has experiences dyspnea but oxygen maintains in the low 90s high 80s and once sitting patient maintains in the 90s.
[2025-01-04 11:23] LABS: Vancomycin, Trough 19.7 ug/mL (5.0-10.0)
[2025-01-04] MEDS ORDERED: Morphine Sulfate 20 MG/1ML 1 ML Oral Syringe PO ONE (11:30)
[2025-01-04] MEDS ORDERED: Azithromycin 250 MG Tab PO ONE (13:00)
--- NOTE | 2025-01-04 16:52 | NUR ---
shift summary patient neuro remains unchaged. vitals remain stable. spo2 >90% on airvo 60l 85%. patient will drop in oxygen saturation with episodes of coughing and movement to the comode. patient when feeling short of breath becomes very short of breath. patient , amanda, has been very helpful in keeping patient calm during these episodes. no acute changes otherwise. plan remains up to date.
--- NOTE | 2025-01-04 19:48 | NUR ---
ASSUMED CARE OF THIS PATIENT AT 1900. PT IS A+O X4 ABLE TO MAKE NEEDS KNOWN. IS AT BEDSIDE AND WILL BEING STAYING THE NIGHT WITH HER IN THE ROOM. PT IS SITTING IN A TRIPOD POSTION IN THE BED, HOB ELAVATED. SHE IS ON AIRVO SETTINGS 60L & 85%, SATTING 91% ON THE MONITOR. RT AT BEDSIDE FOR TREATMENT. BED IN LOWEST POSTION FOR SAFETY, CALL LIGHT IN REACH.
[2025-01-05 04:25] VITALS: BP 119/76
[2025-01-05 04:26] LABS: BASOPHILS ABSOLUTE AUTO 0.09 K/mm3 (0.00-0.23); BASOPHILS PERCENT AUTO 0 % (0-2); EOSINOPHILS ABSOLUTE AUTO 0.01 K/mm3 (0.00-0.68); EOSINOPHILS PERCENT AUTO 0 % (0-6); Hematocrit 28.9 % (33.0-51.0); Hemoglobin 9.5 g/dL (11.5-16.0); IMMATURE GRAN ABSOLUTE AUTO 0.84 K/mm3 (0.00-0.10); IMMATURE GRAN PERCENT AUTO 3 % (0-1); LYMPHOCYTES ABSOLUTE AUTO 1.09 K/mm3 (0.84-5.20); LYMPHOCYTES PERCENT AUTO 4 % (21-46); MONOCYTES ABSOLUTE AUTO 0.69 K/mm3 (0.16-1.47); MONOCYTES PERCENT AUTO 2 % (4-13); Mean Corpuscular HGB 30.2 pg (26.0-34.0); Mean Corpuscular HGB Conc 32.9 g/dL (31.5-36.5); Mean Corpuscular Volume 92 fL (80-100); Mean Platelet Volume 8.9 fL (9.1-12.4); NEUTROPHILS ABSOLUTE AUTO 25.52 K/mm3 (1.96-9.15); NEUTROPHILS PERCENT AUTO 90 % (41-73); Platelet Count 544 K/mm3 (150-400); RDW Coefficient Variation 13.6 % (11.7-14.2); RDW Standard Deviation 45.7 fL (35.1-46.3); Red Blood Cell Count 3.15 M/mm3 (3.80-5.20); White Blood Cell Count 28.24 K/mm3 (4.00-11.30)
[2025-01-05 05:04] LABS: Albumin, Blood 1.7 g/dL (3.4-5.0); Anion Gap 12 mmol/L (3-11); Blood Urea Nitrogen 10 mg/dL (8-24); Bun/Creatinine Ratio 18.5 (12.0-20.0); CO2, Blood 28 mmol/L (21-32); Calcium, Blood 8.2 mg/dL (8.5-10.1); Chloride, Blood 103 mmol/L (98-108); Creatinine, Blood 0.54 mg/dL (0.40-1.00); Glomerular Filtration Rate 101 (60-); Glucose, Blood 149 mg/dL (70-99); Phosphorus, Blood 4.1 mg/dL (2.5-4.9); Potassium, Blood 3.1 mmol/L (3.5-5.5); Sodium, Blood 140 mmol/L (136-145)
[2025-01-05] MEDS ORDERED: Potassium Chloride 20 MEQ TabCR PO STA (05:37)
--- NOTE | 2025-01-05 06:10 | NUR ---
SHIFT SUMMARY PT IS A+O X4 COOPERATIVE W/ CARE BUT DOES BECOME ANXIOUS EASILY. WHEN SHE BEOMES ANXIOUS SHE HAS PANIC ATTACKS, HAVING HER AT BEDSIDE HAS HELPED TO DECREASE HER ANXIETY AND RECOVERY TIME FROM PANIC ATTACKS. PT REMAINS ON AIRVO AT 60L AND 85% SATTING AT 90% AND ABOVE WHILE RESTING. WHEN PT COUGHS OR GETS WORKED UP SHE WILL DESAT TO THE 70s RECOVERY TIME IS BETTER THEN PREVIOUS NIGTH. PT WAS ABLE TO SLEEP FOR THE FIRST TIME IN THREE NIGTHS. PRN PAIN MEDICATIONS GIVEN T/O SHIFT AT PT REQUEST. ABX GIVEN PER EMAR. K 0F 3.1 THIS AM, 40 MEQ PO GIVEN. CALL LIGHT IN REACH WILL CONTIUE WITH PLAN OF CARE AND REPORT TO ONCOMING RN.
[2025-01-05] MEDS ORDERED: MethylPREDNISolone Sod Succ 40 MG VIAL IV SCH (08:00)
[2025-01-05 08:22] VITALS: BP 124/87
[2025-01-05] MEDS ORDERED: Mag Sulfate 1 GM/D5% 100ML 100 ML IV STA (08:48)
[2025-01-05 10:59] VITALS: BP 129/100
[2025-01-05 11:51] VITALS: BP 115/75
[2025-01-05] MEDS ORDERED: Morphine Sulfate 10 MG/ML 1MLSYR INH SCH (12:00)
[2025-01-05] MEDS ORDERED: Ipratropium/Albuterol SulF 2.5-0.5MG/3 ML Amp INH PRN (12:10)
[2025-01-05] MEDS ORDERED: LORazepam 2 MG/ML 1ML Injection IV PRN (12:10)
[2025-01-05] MEDS ORDERED: Azithromycin 250 MG Tab PO SCH (13:00)
--- NOTE | 2025-01-05 13:49 | NUR ---
UPDATE PT HAD MULTIPLE VISITORS COME IN. PT THEN STARTED COUGHING AND AND DESATURATED TO LOW 60'S. PT ON AIRVO AT 60L AND 88% FIO2. RR IN THE 20-30'S. PT PROVIDED BREATHING TREATMENT WITH INHALED MORPHINE. PT ALSO TREATED TWICE FOR ANXIETY PER EMAR. THIS RN ASKED ALL VISITORS TO LEAVE EXCEPT SPOUSE. SPOUSE HELPING PATIENT TO RELAX AND SLOW HER BREATHING. 02 SATS NOW IN THE HIGH 80'S TO LOW 90'S.
[2025-01-05 15:46] VITALS: BP 120/78
[2025-01-05] MEDS ORDERED: MethylPREDNISolone Sod Succ 125 MG Vial IV SCH (16:00)
--- NOTE | 2025-01-05 16:27 | NUR ---
SHIFT SUMMARY PT REMAINS ALERT AND ORIENTED. PT MORE RELAXED THIS AFTERNOON AND HAVING LESS COUGHING EPISODES. PT CONTINES TO BE ON AIRVO AT 60L 89% FIO2. BP STABLE. HR REMAINS SINUS TACH. PT CONTINUES TO COMPLAIN OF PAIN TO RIB AREA AND MEDICATED PER EMAR. PT ABLE TO MOVE HERSELF AROUND IN THE BED NEEDED. PT DOES DESATURE QUICKLY WITH MINIMAL EXERTION AND TAKES MINUTES TO RECOVER. SPOUSE AT BEDSIDE THIS AFTERNOON. WILL REPORT OFF TO ONCOMING RN
[2025-01-05 20:12] VITALS: BP 107/62
--- NOTE | 2025-01-05 20:48 | NUR ---
ASSUMED CARE OF THIS PT AT 1900. PT IS A+O X4, SHE IS VERY ANXIOUS THIS EVENING. IS AT BEDSIDE ASSISTING PT WITH CALMING DOWN. PT ON TELE SHOWING SINUS TACH ON THE MONTIOR WITH A HR OF 107. DENIES CHEST PAIN/PRESSURE. ON AIRVO 60L & 89%. PT GOT UP TO THE BSC AND DESAT TO THE 70s. PT DOES TAKE SOMETIME TO RECOVER FROM ANY ACTIVITY OR COUGHING. BED IN LOWEST POSTION FOR SAFETY, CALL LIGHT IN REACH.
[2025-01-06] VITALS: BP 128/74
[2025-01-06 03:50] LABS: PCO2 Arterial 47.4 mmHg (35-45); PO2 Arterial 52.9 mmHg (80-100); pH Blood Arterial 7.43 (7.35-7.45)
[2025-01-06 04:02] VITALS: BP 142/96
[2025-01-06 04:36] LABS: BASOPHILS ABSOLUTE AUTO 0.04 K/mm3 (0.00-0.23); BASOPHILS PERCENT AUTO 0 % (0-2); EOSINOPHILS PERCENT AUTO 0 % (0-6); Hematocrit 29.2 % (33.0-51.0); Hemoglobin 9.5 g/dL (11.5-16.0); IMMATURE GRAN ABSOLUTE AUTO 0.55 K/mm3 (0.00-0.10); IMMATURE GRAN PERCENT AUTO 2 % (0-1); LYMPHOCYTES ABSOLUTE AUTO 1.18 K/mm3 (0.84-5.20); LYMPHOCYTES PERCENT AUTO 5 % (21-46); MONOCYTES ABSOLUTE AUTO 0.58 K/mm3 (0.16-1.47); MONOCYTES PERCENT AUTO 2 % (4-13); Mean Corpuscular HGB 30.2 pg (26.0-34.0); Mean Corpuscular HGB Conc 32.5 g/dL (31.5-36.5); Mean Corpuscular Volume 93 fL (80-100); Mean Platelet Volume 8.8 fL (9.1-12.4); NEUTROPHILS ABSOLUTE AUTO 23.39 K/mm3 (1.96-9.15); NEUTROPHILS PERCENT AUTO 91 % (41-73); Platelet Count 611 K/mm3 (150-400); RDW Coefficient Variation 13.8 % (11.7-14.2); RDW Standard Deviation 46.4 fL (35.1-46.3); Red Blood Cell Count 3.15 M/mm3 (3.80-5.20); White Blood Cell Count 25.74 K/mm3 (4.00-11.30)
[2025-01-06] MEDS ORDERED: Magnesium Sulf 2 GM/Water 50ML 50 ML IV ONE (04:45)
[2025-01-06] MEDS ORDERED: Potassium Chloride 40 MEQ in NS 250 ML IV ONE (04:45)
[2025-01-06 04:52] LABS: Albumin, Blood 1.8 g/dL (3.4-5.0); Anion Gap 8 mmol/L (3-11); Blood Urea Nitrogen 11 mg/dL (8-24); Bun/Creatinine Ratio 18.8 (12.0-20.0); CO2, Blood 30 mmol/L (21-32); Calcium, Blood 8.3 mg/dL (8.5-10.1); Chloride, Blood 105 mmol/L (98-108); Creatinine, Blood 0.59 mg/dL (0.40-1.00); Glomerular Filtration Rate 99 (60-); Glucose, Blood 155 mg/dL (70-99); Magnesium, Blood 1.6 mg/dL (1.6-2.4); Phosphorus, Blood 2.3 mg/dL (2.5-4.9); Potassium, Blood 3.3 mmol/L (3.5-5.5); Sodium, Blood 140 mmol/L (136-145)
--- NOTE | 2025-01-06 05:29 | NUR ---
SHIFT SUMMARY PT IS A+O X4, SHE DID HAVE A FEW EPISODES OF CONFUSTION LAST NIGHT WHEN AWAKENING BUT WAS ABLE TO BE REORIENTED. SHE HAS STRUGGLED SEVERAL TIMES THIS SHIFT WITH ANXIETY AND PANIC ATTACKS THAT TOOK LONGER FOR HER TO RECOVERY FROM THEN THE PERIVOUS NIGHT EVEN WITH HER AT BEDSIDE. SHE HAS NOT SLEPT WELL THIS NIGHT BUT IS CURRENTLY TRYING TO REST. AIRVO IN PLACE 60L AND 89%. SATTING AT 91%, SHE DID DESAT OFTEN AND IS STILL TAKING SOMETIME TO RECOVERY FROM THAT. COUGHING FITS DUE HOWEVER SEEM TO BE HAPPENING LESS OFTEN. MAG INFUSING PER EMAR AT THIS TIME. REMAINS AT BEDSIDE, CALL LIGHT IN REACH WILL CONTINUE WITH PLAN OF CARE AND REPORT TO ONCOMING RN.
[2025-01-06 11:56] VITALS: BP 138/93
[2025-01-06] MEDS ORDERED: Morphine Sulfate 20 MG/1ML 1 ML Oral Syringe SL PRN (14:15)
--- NOTE | 2025-01-06 15:38 | NUR ---
MET WITH PT AND FAMILY AT BEDSIDE AT APPROX 1430. THE PATIENT MADE THE DECISION WITH HER TO CHANGE STATUS TO COMFORT CARE. DR BENSON ALSO AT BEDSIDE DURING THE VISIT, GAVE ORDERS FOR COMFORT CARE.
[2025-01-06] MEDS ORDERED: Haloperidol Lactate 2 MG/ML Conc 1ML Dose PO PRN (15:45)
[2025-01-06] MEDS ORDERED: Haloperidol Lactate Inj. 5 MG/ML Injection IV PRN (15:45)
[2025-01-06] MEDS ORDERED: Promethazine HCl 25 MG Supp PR PRN (15:45)
--- NOTE | 2025-01-06 16:07 | NUR ---
"Spiritual Care Visit | Nurse Request Pt. is awake in bed but displays evidence of being groggy and confused. SPouse is at bedside and welcomed my visit. 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 Spouse verbalized that the Pt. was the love of his life. Considered matters of lola and belief. Prayed over the Pt. and prayed for the Spouse. Spouse verbalized gratitude for the spiritual care visit. Will remain available tothe Pt. and family."
[2025-01-06] MEDS ORDERED: Vancomycin HCL 750 MG in NS 250 ML IV SCH (18:00)
--- NOTE | 2025-01-06 18:01 | NUR ---
SHIFT SUMMARY; ASSUMED CARE AT 0700. SEVERAL EPISODES IN AM OF ANXIETY, SOB AND DESATS TO A LOW OF 27% WITH EXERTION. AIR VO 60L 90% FIO2. PALLATIVE CARE, DR BENSON AND DR. ONEILL IN TO SEE PT TODAY. SPOUSE AT BEDSIDE. SPOUSE AND PATIENT DECIDE TO TRANSITION TO COMFORT CARE. ORDERS PLACED, WILL CONTINUE TO MEDICATE AND TREAT PER EMAR. RESTING COMFORTABLY AT END OF SHIFT. WILL CONTINUE TO MONITOR AND TREAT UNTIL REPORT GIVEN TO ONCOMING NOC SHIFT RN.
--- NOTE | 2025-01-07 03:30 | NUR ---
0137- PT OUT OF ROOM TO GET RN, STATES "I THINK SHE PASSED" 0139- TWO RN VERIFICATION OF DONE WITH AUTOMOTIVE FUEL INJECTION SERVICER KEY. TIME OF @ 0139. LEFT WITH BELONGINGS AND NECKLACE. REQUESTS THE NOSE RING REMAIN WITH PT. UPON POST MORTEM CARE SILVER COLORED METAL TOE RING, SILVER COLORED METAL BELLY BUTTON PIERCING WITH MULTICOLORED STONE, AND SPORTS BRA REMOVED FROM PT AND LABELED IN BAG, NEXT TO PT IN BED. POST MORTEM CARE WAS PERFORMED, PT CLEANED AND PLACED IN DISPOSABLE GOWN AND NEW BRIEF. RT UPPER ARM POWER GLIDE REMOVED, SITE DRESSED WITH GAUZE AND COBAN.
--- NOTE | 2025-01-07 04:12 | NUR ---
ROOM TEMP TURNED DOWN AFTER HAD LEFT WHILE AWAITING RELEASE OF PT TO HOME FROM DONOR LINE. ICE HAS BEEN PLACED ON PT EYES PER DONOR LINE REQUEST.
--- NOTE | 2025-01-07 06:11 | NUR ---
UPDATE CALLED [facility] (JANET) TO GIVE UPDATE ABOUT PT BEING TRANSFERRED TO [facility]. SPOUSE DID NOT ANSWER, VOICEMAIL WAS FULL SO WAS UNABLE TO LEAVE MESSAGE
== END 2025-01-07 05:55 | DRG 871 ==
LOC: ER 20:32 → ERHOLD 23:34 → MEDS 23:34 → PCU 23:34 → MEDS 01-02 01:36 → PCU 01-03 09:40
PROVIDERS: Emergency Medicine; Family Medicine; Internal Medicine; Student in an Organized Health Care Education/Training Program; ADMIT Student in an Organized Health Care Education/Training Program
PROC: 3E03329 Introduction of Other Anti-infective into Peripheral Vein, Percutaneous Approach (ICD-10-PCS; principal; 2025-01-01)
PROC: 5A0945A Assistance with Respiratory Ventilation, 24-96 Consecutive Hours, High Flow/Velocity Cannula (ICD-10-PCS; 2025-01-04)
PROC: 4A033R1 Measurement of Arterial Saturation, Peripheral, Percutaneous Approach (ICD-10-PCS; 2025-01-06)
DX: A41.9 Sepsis, unspecified organism (principal); J18.9 Pneumonia, unspecified organism; J96.21 Acute and chronic respiratory failure with hypoxia; Z66 Do not resuscitate; R65.20 Severe sepsis without septic shock; Z96.611 Presence of right artificial shoulder joint; E83.42 Hypomagnesemia; K58.9 Irritable bowel syndrome, unspecified; M05.1 Rheumatoid lung disease with rheumatoid arthritis; M05.142 Rheumatoid lung disease with rheumatoid arthritis of left hand; M05.141 Rheumatoid lung disease with rheumatoid arthritis of right hand; Z51.5 Encounter for palliative care; E87.6 Hypokalemia; F32.A Depression, unspecified; F41.9 Anxiety disorder, unspecified; E83.39 Other disorders of phosphorus metabolism; Z96.631 Presence of right artificial wrist joint; R53.1 Weakness; Z90.12 Acquired absence of left breast and nipple; Z87.19 Personal history of other diseases of the digestive system; Z92.3 Personal history of irradiation; Z90.49 Acquired absence of other specified parts of digestive tract; Z90.89 Acquired absence of other organs; Z98.890 Other specified postprocedural states; Z98.51 Tubal ligation status; Z88.8 Allergy status to other drugs, medicaments and biological substances; Z88.5 Allergy status to narcotic agent; Z88.2 Allergy status to sulfonamides; Z88.1 Allergy status to other antibiotic agents; Z79.84 Long term (current) use of oral hypoglycemic drugs; Z79.899 Other long term (current) drug therapy; Z87.891 Personal history of nicotine dependence; Z85.3 Personal history of malignant neoplasm of breast; Z87.440 Personal history of urinary (tract) infections; Z28.21 Immunization not carried out because of patient refusal; Z90.5 Acquired absence of kidney
CPT/HCPCS: 0202U; 36415; 36600; 71046; 80053; 80069; 80202; 82803; 83605; 83735; 83880; 84145; 85025; 85027; 87040; 87070; 87205; 93005; 93010; 94640; 94664; 94762; 96374; 99285-25; A9270; C1751; J0696; J1630; J1650; J1940; J2060; J2270; J2543; J2919; J3370; J3475; J3480; J7030; J7050; J7120